=== PATIENT | female | born 1995 | race American Indian/Alaskan Native ===

== ENCOUNTER 2019-05-24 21:44 | Emergency (ER) | payer SELFPAY ==
[2019-05-24 22:47] VITALS: BP 110/71
--- NOTE | 2019-05-25 00:54 | Emergency Department Report ---
Burn HPI - History Stated Complaint: LT MIDDLE FINGER PAIN Chief Complaint: Burn/Smoke Inhalation Time Seen by Provider: 05/25/19 00:02 Duration of Burn: Today Burn Location: Other (right ring finger) Burn Etiology: Accidental Pain: Mild Symptoms:: Yes Able to Tolerate Fluids, No Blistering, No Malaise, No Myalgias, No Fever, No Vomiting Other History: This is a 24-year-old female nontoxic, well nourished in appearance, no acute signs of distress presents to the ED with c/o of right ring finger superficial burn. Patient stated that today she was cooking and excellently touched the hot aluminum foil. Patient denies any blisters. Patient denies any fever, chills, nausea, vomiting, headache, stiff neck, numbness or tingling. Patient is able to keep fluids. Patient denies any drug allergies significant past medical history. - Home Meds and Allergies Home Medications: Previous Rx's Medication Instructions Recorded Last Taken Type Acetaminophen/Codeine [Tylenol 1 tab PO Q6H PRN #12 tab 05/25/19 Unknown Rx /Codeine # 3 tab] Silver Sulfadiazine [Silvadene] 20 gm TP DAILY #1 cream..g. 05/25/19 Unknown Rx Allergies/Adverse Reactions: Allergies Allergy/AdvReac Type Severity Reaction Status Date / Time tomato Allergy Anaphylaxis Verified 05/24/19 22:55 ED Review of Systems ROS: Stated complaint: LT MIDDLE FINGER PAIN Other details as noted in HPI Constitutional: denies: chills, fever Eyes: denies: eye pain, eye discharge, vision change ENT: denies: ear pain, throat pain Respiratory: denies: cough, shortness of breath, wheezing Cardiovascular: denies: chest pain, palpitations Endocrine: no symptoms reported Gastrointestinal: denies: abdominal pain, nausea, diarrhea Genitourinary: denies: urgency, dysuria, discharge Musculoskeletal: denies: back pain, joint swelling, arthralgia Skin: denies: rash, lesions Neurological: denies: headache, weakness, paresthesias Psychiatric: denies: anxiety, depression Hematological/Lymphatic: denies: easy bleeding, easy bruising ED Past Medical Hx - Past Medical History Previous Medical History?: No - Surgical History Past Surgical History?: No - Social History Smoking Status: Never Smoker Substance Use Type: None - Medications Home Medications: Home Medications Medication Instructions Recorded Confirmed Last Taken Type Acetaminophen/Codeine [Tylenol 1 tab PO Q6H PRN #12 tab 05/25/19 Unknown Rx /Codeine # 3 tab] Silver Sulfadiazine [Silvadene] 20 gm TP DAILY #1 cream..g. 05/25/19 Unknown Rx Exam - Exam General: Vital signs noted. No distress. Alert and acting appropriately. HEENT: Yes Moist Mucous Membranes, No Conjuctival Injection, No Corneal Edema Exam: Yes Normal Heart Sounds, No Respiratory Distress, No Sensory Deficits, No Musculoskeletal Pain Exam: right distal ring finger erythema with no blistering, swelling or drainage. ED Course Vital Signs 05/24/19 22:32 Temperature 98.9 F Pulse Rate 72 Respiratory 18 Rate Blood Pressure 110/71 O2 Sat by Pulse 100 Oximetry - Reevaluation(s) Reevaluation #1: 05/25/19 00:54 Patient is speaking in full sentences with no signs of distress noted. ED Medical Decision Making - Medical Decision Making 24-year-old female that presents with superficial burn. Patient is stable and was examined by me. There is no open wound, blistering, swelling. Patient received Silvadene and a sterile dressing applied. Patient is also discharged with Tylenol with codeine and was instructed not to operate any machinery due to possible drowsiness. Patient was instructed to Follow-up with a primary care doctor in 3-5 days or if symptoms worsen and continue return to emergency room as soon as possible. At time of discharge, the patient does not seem toxic or ill in appearance. No acute signs of distress noted. Patient agrees to discharge treatment plan of care. No further questions noted by the patient. Critical care attestation.: If time is entered above; I have spent that time in minutes in the direct care of this critically ill patient, excluding procedure time. ED Disposition Clinical Impression: Superficial burn Disposition: DC-01 TO HOME OR SELFCARE Is pt being admited?: No Does the pt Need Aspirin: No Condition: Stable Instructions: Acetaminophen/Codeine (By mouth) Additional Instructions: Follow-up with a primary care doctor in 3-5 days or if symptoms worsen and continue return to emergency room as soon as possible. Do not operate any machinery while taking Tylenol with codeine as this may cause drowsiness. Prescriptions: Silver Sulfadiazine [Silvadene] 20 gm TP DAILY #1 cream..g. Acetaminophen/Codeine [Tylenol /Codeine # 3 tab] 1 tab PO Q6H PRN #12 tab PRN Reason: Pain , Severe (7-10) Referrals: PRIMARY CAREMD [Primary Care Provider] - 3-5 Days NICCI BRANHAM MD [Staff Physician] - 3-5 Days [facility] [Outside] - 3-5 Days Forms: Work/School Release Form(ED)
== END 2019-05-25 01:14 | disposition home or self-care (01) ==
LOC: ED 21:44
DX: T23.021A Burn of unspecified degree of single right finger (nail) except thumb, initial encounter (principal); Z91.018 Allergy to other foods; X98.8XXA Assault by other hot objects, initial encounter; Y93.G3 Activity, cooking and baking; Y92.89 Other specified places as the place of occurrence of the external cause; Y99.8 Other external cause status

== ENCOUNTER 2019-08-16 22:00 | Emergency (ER) | payer SELFPAY ==
[2019-08-16] MEDS ORDERED: ONDANSETRON 4 MG ODT TAB PO ONE (23:02)
[2019-08-16] MEDS ORDERED: ACETAMINOPHEN 325 MG TAB PO ONE (23:02)
--- NOTE | 2019-08-16 23:03 | Emergency Department Report ---
ED General Adult HPI - General Chief complaint: Abdominal Pain Stated complaint: PREG ABDOMINAL PAIN 15 WEEKS Time Seen by Provider: 08/16/19 22:43 Source: patient, RN notes reviewed Mode of arrival: Ambulatory Limitations: No Limitations - History of Present Illness Initial comments: During the history and physical examination, I am sports apparel internship and escorted by nurse Judi Avalos The patient is a 24-year-old female. She reports that she is 5, para 2. Reports last menstrual period is April 23, 2020. Reports previous surgical history includes . The patient does not have an HARDWARE DEVELOPER doctor. She presents to the ER with a complaint of nontraumatic supraumbilical pain. It started today. She took Excedrin with no relief. There is no headache, neck pain, chest pain, shortness of breath, irritative or obstructive urinary sympto ms. There is no vaginal bleeding. She does some heavy lifting, but not strenuous heavy lifting. She is currently resting comfortably, sitting on a retail manager's lap, reading a text book. -: Gradual Location: abdomen Radiation: non-radiation Quality: aching Consistency: intermittent Improves with: none Worsens with: none Associated Symptoms: denies other symptoms - Related Data Previous Rx's Medication Instructions Recorded Last Taken Type Acetaminophen [Non-Aspirin Extra 500 mg PO Q6HR PRN #30 tablet 08/17/19 Unknown Rx Strength] Doxylamine Succinate/Vit B6 1 each PO QHS PRN #30 tablet. 08/17/19 Unknown Rx [Adeline Cole 10-10 mg Tablet] Mine Root [Mine] 250 mg PO QID PRN #30 capsule 08/17/19 Unknown Rx Nitrofurantoin Windsor/M-Cryst 100 mg PO Q12HR #14 capsule 08/17/19 Unknown Rx [Macrobid CAP] Vit-Fe Fumar-FA [ 1 tab PO QDAY #30 tablet 08/17/19 Unknown Rx Vitamin] Allergies Allergy/AdvReac Type Severity Reaction Status Date / Time Sulfa (Sulfonamide Allergy Unknown Verified 08/16/19 22:13 Antibiotics) tomato Allergy Anaphylaxis Verified 05/24/19 22:55 ED Review of Systems ROS: Stated complaint: PREG ABDOMINAL PAIN 15 WEEKS Other details as noted in HPI Constitutional: fever Eyes: denies: eye discharge ENT: denies: congestion Respiratory: denies: wheezing Cardiovascular: denies: syncope Gastrointestinal: abdominal pain Genitourinary: denies: dysuria Musculoskeletal: denies: back pain Skin: as per HPI Neurological: as per HPI Psychiatric: as per HPI Hematological/Lymphatic: denies: easy bleeding ED Past Medical Hx - Past Medical History Previous Medical History?: Yes Hx Asthma: Yes Additional medical history: ecemia. Preeclampsia with 1st preg. - Surgical History Past Surgical History?: Yes Additional Surgical History: - Social History Smoking Status: Never Smoker Substance Use Type: None - Medications Home Medications: Home Medications Medication Instructions Recorded Confirmed Last Taken Type Acetaminophen [Non-Aspirin Extra 500 mg PO Q6HR PRN #30 tablet 08/17/19 Unknown Rx Strength] Doxylamine Succinate/Vit B6 1 each PO QHS PRN #30 tablet. 08/17/19 Unknown Rx [Diclegis Dr 10-10 mg Tablet] Mine Root [Mine] 250 mg PO QID PRN #30 capsule 08/17/19 Unknown Rx Nitrofurantoin Windsor/M-Cryst 100 mg PO Q12HR #14 capsule 08/17/19 Unknown Rx [Macrobid CAP] Vit-Fe Fumar-FA [ 1 tab PO QDAY #30 tablet 08/17/19 Unknown Rx Vitamin] ED Physical Exam - General Limitations: No Limitations General appearance: alert, in no apparent distress - Head Head exam: Present: atraumatic, normocephalic - Eye Eye exam: Present: normal appearance, EOMI. Absent: nystagmus - ENT ENT exam: Present: normal exam, normal orophraynx, mucous membranes moist, normal external ear exam - Neck Neck exam: Present: normal inspection, full ROM. Absent: tenderness, meningismus - Respiratory Respiratory exam: Present: normal lung sounds bilaterally. Absent: respiratory distress - Cardiovascular Cardiovascular Exam: Present: regular rate, normal rhythm, normal heart sounds. Absent: bradycardia, tachycardia, irregular rhythm, systolic murmur, diastolic murmur, rubs, gallop - GI/Abdominal GI/Abdominal exam: Present: soft. Absent: distended, tenderness, guarding, rebound, rigid, pulsatile mass - Extremities Exam Extremities exam: Present: normal inspection, full ROM, other (2+ pulses noted in the bilateral upper and lower extremities. There is no palpable cord. negative Homans sign. Muscular compartments are soft. The pelvis is stable.). Absent: pedal edema, calf tenderness - Back Exam Back exam: Present: normal inspection, full ROM. Absent: tenderness, CVA tenderness (R), CVA tenderness (L), paraspinal tenderness, vertebral tenderness - Neurological Exam Neurological exam: Present: alert, normal gait, other (There is no facial droop. The tongue is midline. Extraocular movements are intact bilaterally. There is 5 out of 5 strength in bilateral upper and lower extremities. Sensation is intact to light touch bilateral upper and lower extremities. There is a normal gait.). Absent: motor sensory deficit - Psychiatric Psychiatric exam: Present: normal affect, normal mood - Skin Skin exam: Present: warm, dry, intact, normal color. Absent: rash ED Course Vital Signs 08/16/19 22:11 Temperature 98.5 F Pulse Rate 73 Respiratory 18 Rate Blood Pressure 122/72 O2 Sat by Pulse 97 Oximetry - Reevaluation(s) Reevaluation #1: 08/17/19 00:08 Differential diagnosis, including but not limited to: , encounter for evaluation/test, urinary tract infection, placenta previa, placental abruption, constipation, round ligament pain, ovarian cyst Assessment and plan: 24-year-old female with complaint of and periumbilical abdominal pain. She is afebrile with reassuring vital signs. There is no right lower quadrant tenderness, there is no right upper quadrant tenderness, there is a negative Galvan sign, there is negative Rovsing sign. Patient resting comfortably at this time, sitting on a retail manager's lap, and reading a text book. She is also quite engaged with her cellular phone. Her abdominal examination is not consistent with an acute surgical process at this time. We will treat her pain with acetaminophen, obtain screening laboratory studies, obstetrics ultrasound, and reassess. Reevaluation #2: 08/17/19 02:05 Patient resting comfortably, and in no acute distress. Ultrasound unremarkable. Repeat abdominal exam unremarkable. Patient in no distress. Urinalysis reviewed and appreciated. Patient will be started empirically on Macrobid, vitamins, as needed nausea medications, as needed Tylenol, she can follow-up with an outpatient u.s. senator to initiate outpatient care. Return precautions are reviewed. ED Medical Decision Making - Lab Data Result diagrams: 08/17/19 00:02 08/17/19 00:02 Vital Signs 08/16/19 22:11 Temperature 98.5 F Pulse Rate 73 Respiratory 18 Rate Blood Pressure 122/72 O2 Sat by Pulse 97 Oximetry Lab Results 08/16/19 08/16/19 Range/Units 23:02 23:30 Urine Bilirubin Neg (Negative) Urine RBC (Auto) 6.0 (0.0-6.0) /HPF U Epithel Cells (Auto) 4.0 (0-13.0) /HPF Urine Opiates Screen Presumptive negative Urine Methadone Screen Presumptive negative Ur Barbiturates Screen Presumptive negative Ur Phencyclidine Scrn Presumptive negative Ur Amphetamines Screen Presumptive negative U Benzodiazepines Scrn Presumptive negative Urine Cocaine Screen Presumptive negative Vital Signs 08/16/19 22:11 Temperature 98.5 F Pulse Rate 73 Respiratory 18 Rate Blood Pressure 122/72 O2 Sat by Pulse 97 Oximetry Labs 08/16/19 08/16/19 08/16/19 23:02 23:30 23:40 WBC RBC Hgb Hct MCV MCH MCHC RDW Plt Count Sodium Potassium Chloride Carbon Dioxide Anion Gap BUN Creatinine Estimated GFR BUN/Creatinine Ratio Glucose Calcium Magnesium Total Bilirubin AST ALT Alkaline Phosphatase Total Creatine Kinase Total Protein Albumin Albumin/Globulin Ratio Lipase HCG, Quant Urine Color Priti Urine Turbidity Cloudy Urine pH 7.0 Ur Specific Uneeda 1.026 Urine Protein 30 mg/dl Urine Glucose (UA) Neg Urine Ketones Neg Urine Blood Neg Urine Nitrite Pos Urine Bilirubin Neg Urine Urobilinogen < 2.0 Ur Leukocyte Esterase Tr Urine WBC (Auto) 7.0 H Urine RBC (Auto) 6.0 U Epithel Cells (Auto) 4.0 Urine Mucus 3+ Urine Opiates Screen Presumptive negative Urine Methadone Screen Presumptive negative Ur Barbiturates Screen Presumptive negative Ur Phencyclidine Scrn Presumptive negative Ur Amphetamines Screen Presumptive negative U Benzodiazepines Scrn Presumptive negative Urine Cocaine Screen Presumptive negative U Marijuana (THC) Screen Presumptive positive Drugs of Abuse Note Disclamer Blood Type O POSITIVE 08/17/19 08/17/19 08/17/19 00:02 00:02 00:02 WBC 9.1 RBC 3.85 Hgb 11.9 Hct 35.8 MCV 93 MCH 31 MCHC 33 RDW 14.0 Plt Count 223 Sodium 137 Potassium 3.8 Chloride 102.0 Carbon Dioxide 23 Anion Gap 16 BUN 6 L Creatinine 0.5 L Estimated GFR > 60 BUN/Creatinine Ratio 12 Glucose 84 Calcium 8.8 Magnesium 1.90 Total Bilirubin < 0.20 AST 19 ALT 11 Alkaline Phosphatase 53 Total Creatine Kinase 177 H Total Protein 6.8 Albumin 4.0 Albumin/Globulin Ratio 1.4 Lipase HCG, Quant 47461 H Urine Color Urine Turbidity Urine pH Ur Specific Uneeda Urine Protein Urine Glucose (UA) Urine Ketones Urine Blood Urine Nitrite Urine Bilirubin Urine Urobilinogen Ur Leukocyte Esterase Urine WBC (Auto) Urine RBC (Auto) U Epithel Cells (Auto) Urine Mucus Urine Opiates Screen Urine Methadone Screen Ur Barbiturates Screen Ur Phencyclidine Scrn Ur Amphetamines Screen U Benzodiazepines Scrn Urine Cocaine Screen U Marijuana (THC) Screen Drugs of Abuse Note Blood Type 08/17/19 00:02 WBC RBC Hgb Hct MCV MCH MCHC RDW Plt Count Sodium Potassium Chloride Carbon Dioxide Anion Gap BUN Creatinine Estimated GFR BUN/Creatinine Ratio Glucose Calcium Magnesium Total Bilirubin AST ALT Alkaline Phosphatase Total Creatine Kinase Total Protein Albumin Albumin/Globulin Ratio Lipase 13 HCG, Quant Urine Color Urine Turbidity Urine pH Ur Specific Uneeda Urine Protein Urine Glucose (UA) Urine Ketones Urine Blood Urine Nitrite Urine Bilirubin Urine Urobilinogen Ur Leukocyte Esterase Urine WBC (Auto) Urine RBC (Auto) U Epithel Cells (Auto) Urine Mucus Urine Opiates Screen Urine Methadone Screen Ur Barbiturates Screen Ur Phencyclidine Scrn Ur Amphetamines Screen U Benzodiazepines Scrn Urine Cocaine Screen U Marijuana (THC) Screen Drugs of Abuse Note Blood Type - Radiology Data Radiology results: report reviewed, image reviewed Print Report Referring Physician: JEFFREY ALANIZ Patient Name: JULIA WOLFF Date of : 1995 Sex: Female Report Date: 2019-08-17 Report Status: Finalized Findings [address] [address] Ultrasound Report Signed Patient: JULIA WOLFF MR#: [id number] : 1995 Acct:[id number] Age/Sex: 24 / F ADM Date: 08/16/19 Loc: ED Attending Dr: Ordering Physician: JEFFREY ALANIZ MD Date of Service: 08/16/19 Procedure(s): US OB >= 14 weeks Fetus Accession Number(s): [id number] cc: JEFFREY ALANIZ MD ULTRASOUND OBSTETRIC INDICATION: 16 weeks with abdominal pain. TECHNIQUE: Transabdominal. COMPARISON: None available. FINDINGS: There is a single intrauterine . Biparietal Diameter = 3.36 cm = 16 weeks, 3 day(s). Head Circumference = 12.86 cm = 16 weeks, 4 day(s). Abdominal Circumference = 11.13 cm = 17 weeks, 0 day(s). Femur Length = 1.97 cm = 15 weeks, 6 day(s). Average Ultrasound Age (AUA) = 16 weeks, 3 day(s). Heart Rate: 142 beats per minute. Position: cephalic. Cervix: closed. Length in cm (if measured): 4.3 Placenta: anterior and free of the os. Amniotic Fluid Volume: normal Amniotic Fluid Index (JOSE CARLOS) in cm (if calculated): 5.4. Maternal Adnexa: No significant abnormality. IMPRESSION: 1. Single, living intrauterine with estimated sonographic age of 16 weeks, 3 day(s). 2. No significant sonographic abnormality. Signer Name: Iban Boo MD Signed: 08/17/2019 1:20 AM Workstation Name: [id number] Transcribed By: MN Dictated By: Iban Boo MD Electronically Authenticated By: Iban Boo MD Signed Date/Time: 08/17/19119 DD/ 0114 Critical care attestation.: If time is entered above; I have spent that time in minutes in the direct care of this critically ill patient, excluding procedure time. ED Disposition Clinical Impression: Abdominal pain in Qualifiers: Trimester: second trimester Qualified Code(s): O26.892 - Other specified related conditions, second trimester; R10.9 - Unspecified abdominal pain Disposition: DC-01 TO HOME OR SELFCARE Is pt being admited?: No Does the pt Need Aspirin: No Condition: Stable Additional Instructions: Follow-up as soon as possible with an outpatient u.s. senator to initiate care. Patient was found to be 16 weeks and 3 days . Rest, avoid heavy lifting and strenuous physical activities, participate in physical activities as tolerated. Urine toxicology screen demonstrated the presence of marijuana. Recommend that patient avoid consumption and secondhand exposure to marijuana, as it may be detrimental in , and may be responsible for defects, decreased quality of life, and other complications. Take the pain medications as needed, antibiotics as directed, and vitamins/nausea medications as needed and directed. Cultures were sent today, results will be available in the next 3 to 5 days. Please have a primary care doctor or u.s. senator contact medical records department to obtain culture results. While , do not consume alcohol, tobacco, recreational drugs, and avoid consumption of Motrin, ibuprofen, Naprosyn, Aleve. Please return to the emergency room right away with new, worsened or different symptoms, or symptoms not present on the initial emergency room evaluation. Referrals: PRIMARY CAREMD [Primary Care Provider] - 3-5 Days [facility] [Provider Group] - 3-5 Days [facility] [Provider Group] - 3-5 Days [facility] [Provider Group] - 3-5 Days [facility] [Provider Group] - 3-5 Days
[2019-08-16 23:50] LABS: Bilirubin,Urine NEG (Negative); Blood,Urine NEG (Negative); Color,Urine Amber (Yellow); Mucus,Urine 3+ /HPF; Urobilinogen,Urine < 2.0 mg/dL (<2.0)
[2019-08-16 23:54] LABS: Amphetamine Screen,Urine PRESUMPTIVE NEGATIVE; Benzodiazepines Screen,Urine PRESUMPTIVE NEGATIVE; Cocaine Screen,Urine PRESUMPTIVE NEGATIVE; Methadone Screen,Urine PRESUMPTIVE NEGATIVE; Opiate Screen,Urine PRESUMPTIVE NEGATIVE
[2019-08-17 00:41] LABS: Cannabinoid Screen,Urine PRESUMPTIVE POSITIVE
[2019-08-17 00:45] LABS: Alanine Aminotransferase 11 units/L (7-56); BUN/Creatinine Ratio 12; Blood Urea Nitrogen 6 mg/dL (7-17); Calcium 8.8 mg/dL (8.4-10.2); Hemolysis Index 0
[2019-08-17 00:57] LABS: Hematocrit 35.8 % (30.3-42.9); Hemoglobin 11.9 gm/dl (10.1-14.3); Mean Corpuscular HGB Conc 33 % (30-34); Mean Corpuscular Volume 93 fl (79-97); Platelet Count 223 K/mm3 (140-440); Red Blood Count 3.85 M/mm3 (3.65-5.03)
--- NOTE | 2019-08-17 01:25 | Ultrasound Report ---
ULTRASOUND OBSTETRIC INDICATION: 16 weeks with abdominal pain. TECHNIQUE: Transabdominal. COMPARISON: None available. FINDINGS: There is a single intrauterine . Biparietal Diameter = 3.36 cm = 16 weeks, 3 day(s). Head Circumference = 12.86 cm = 16 weeks, 4 day(s). Abdominal Circumference = 11.13 cm = 17 weeks, 0 day(s). Femur Length = 1.97 cm = 15 weeks, 6 day(s). Average Ultrasound Age (AUA) = 16 weeks, 3 day(s). Heart Rate: 142 beats per minute. Position: cephalic. Cervix: closed. Length in cm (if measured): 4.3 Placenta: anterior and free of the os. Amniotic Fluid Volume: normal Amniotic Fluid Index (JOSE CARLOS) in cm (if calculated): 5.4. Maternal Adnexa: No significant abnormality. IMPRESSION: 1. Single, living intrauterine with estimated sonographic age of 16 weeks, 3 day(s). 2. No significant sonographic abnormality. Signer Name: Iban Boo MD Signed: 08/17/2019 1:20 AM Workstation Name: [id number]
[2019-08-17 02:27] VITALS: BP 107/67
== END 2019-08-17 02:25 | disposition home or self-care (01) ==
LOC: ED 22:00
DX: O26.892 Other specified pregnancy related conditions, second trimester (principal); R10.33 Periumbilical pain; Z79.899 Other long term (current) drug therapy; Z88.2 Allergy status to sulfonamides; Z91.018 Allergy to other foods; Z3A.16 16 weeks gestation of pregnancy
CPT/HCPCS: 36415; 76805; 80053; 80307; 81001; 82550; 83690; 83735; 84702; 85027; 86850; 86900; 86901; 87076; 87086; 87186; Q0162

== ENCOUNTER 2019-09-21 08:47 | Outpatient (CLI) | payer MEDICAID ==
[2019-09-21 11:08] VITALS: BP 112/69
--- NOTE | 2019-09-21 11:15 | Ultrasound Report ---
LIMITED OBSTETRIC ULTRASOUND HISTORY: Vaginal bleeding. Check cervical length. COMPARISON: None. TECHNIQUE: Limited OB ultrasound performed. FINDINGS: Cervix: 3.1 cm in length and closed. Ovaries And Uterus: No significant abnormality. Gestation: Ramirez Monochorionic monoamniotic intrauterine fetus. Placenta: anterior location and free of the internal cervical os. Presentation: Breech Amniotic fluid: Within normal limits. ANATOMY: Detailed anatomic survey was not requested. Somatic activity is subjectively within normal limits. C ardiac activity is regular rate at152 beats per minute. BIOMETRY: Not performed. IMPRESSION: Single living intrauterine at approximately 21 weeks 4 days based on clinical dating with n o significant abnormality. Signer Name: Valdez Preciado MD Signed: 09/21/2019 11:11 AM Workstation Name: [id number]
== END 2019-09-21 11:27 | disposition home or self-care (01) ==
LOC: TRG 08:47
PROVIDERS: ATTEND Obstetrics & Gynecology
DX: O46.8X2 Other antepartum hemorrhage, second trimester (principal); Z3A.21 21 weeks gestation of pregnancy
CPT/HCPCS: 76815

== ENCOUNTER 2019-11-14 19:31 | Outpatient (CLI) | payer MEDICAID ==
[2019-11-14 22:17] LABS: Hematocrit 35.7 % (30.3-42.9); Hemoglobin 12.2 gm/dl (10.1-14.3); Mean Corpuscular HGB Conc 34 % (30-34); Mean Corpuscular Volume 95 fl (79-97); Platelet Count 171 K/mm3 (140-440); Red Blood Count 3.75 M/mm3 (3.65-5.03); Red Cell Distribution Width 13.8 % (13.2-15.2)
[2019-11-14 22:21] LABS: Bilirubin,Urine NEG (Negative); Blood,Urine NEG (Negative); Color,Urine Yellow (Yellow); Mucus,Urine FEW /HPF; Protein,Urine <15 mg/dL mg/dL (Negative); Urobilinogen,Urine < 2.0 mg/dL (<2.0)
[2019-11-14 22:33] LABS: Alanine Aminotransferase 8 units/L (7-56); Uric Acid 3.2 mg/dL (3.5-7.6)
[2019-11-15 13:37] VITALS: BP 113/86
== END 2019-11-14 22:45 | disposition home or self-care (01) ==
LOC: TRG 19:31 → ED 19:31 → EDSTATUS 21:20 → APU 21:22 → TRG 22:45
PROVIDERS: ATTEND Obstetrics & Gynecology
DX: O26.893 Other specified pregnancy related conditions, third trimester (principal); Z3A.29 29 weeks gestation of pregnancy
CPT/HCPCS: 36415; 59025; 81001; 82565; 83615; 84450; 84460; 84550; 85027

== ENCOUNTER 2019-11-25 11:43 | Outpatient (CLI) | payer MEDICAID ==
[2019-11-25 12:18] VITALS: BP 113/78
[2019-11-25] MEDS ORDERED: ACETAMINOPHEN 500 MG TAB PO ONE (12:52)
[2019-11-25] MEDS ORDERED: ONDANSETRON 4 MG/2 ML INJ IV PRN (12:55)
[2019-11-25] MEDS ORDERED: ONDANSETRON 8 MG ODT TAB PO PRN (13:51)
[2019-11-25 14:05] LABS: Hemoglobin 11.9 gm/dl (10.1-14.3); Mean Corpuscular HGB Conc 34 % (30-34); Mean Corpuscular Volume 96 fl (79-97); Platelet Count 135 K/mm3 (140-440); Red Blood Count 3.64 M/mm3 (3.65-5.03); Red Cell Distribution Width 13.2 % (13.2-15.2)
[2019-11-25 14:15] LABS: Bilirubin,Urine NEG (Negative); Blood,Urine SM (Negative); Color,Urine Yellow (Yellow); Mucus,Urine FEW /HPF; Protein,Urine <15 mg/dL mg/dL (Negative); Urobilinogen,Urine < 2.0 mg/dL (<2.0)
[2019-11-25 14:27] LABS: Alanine Aminotransferase 9 units/L (7-56)
== END 2019-11-25 15:35 | disposition home or self-care (01) ==
LOC: TRG 11:43
PROVIDERS: ATTEND Obstetrics & Gynecology
DX: O26.893 Other specified pregnancy related conditions, third trimester (principal); R51 Headache; O47.03 False labor before 37 completed weeks of gestation, third trimester; O13.3 Gestational [pregnancy-induced] hypertension without significant proteinuria, third trimester; O99.513 Diseases of the respiratory system complicating pregnancy, third trimester; J45.909 Unspecified asthma, uncomplicated; O99.323 Drug use complicating pregnancy, third trimester; F12.90 Cannabis use, unspecified, uncomplicated; Z3A.30 30 weeks gestation of pregnancy
CPT/HCPCS: 36415; 59025; 81001; 82565; 83615; 84450; 84460; 84550; 85027; Q0162; J2405

== ENCOUNTER 2019-12-27 11:58 | Outpatient (CLI) | payer MEDICAID ==
[2019-12-27] MEDS ORDERED: LACTATED RINGERS 500 ML IV ONE (13:24)
[2019-12-27 14:32] LABS: Bilirubin,Urine NEG (Negative); Blood,Urine NEG (Negative); Color,Urine Yellow (Yellow); Mucus,Urine FEW /HPF; Protein,Urine <15 mg/dL mg/dL (Negative); Urobilinogen,Urine < 2.0 mg/dL (<2.0); WBC,Urine < 1.0 /HPF (0.0-6.0)
[2019-12-27 15:26] LABS: Basophils # (Auto) 0.1 K/mm3 (0.0-0.1); Basophils % (Auto) 0.8 % (0.0-1.8); Eosinophils % (Auto) 0.5 % (0.0-4.3); Hematocrit 35.7 % (30.3-42.9); Hemoglobin 12.4 gm/dl (10.1-14.3); Lymphocytes # (Auto) 2.2 K/mm3 (1.2-5.4); Lymphocytes % (Auto) 21.9 % (13.4-35.0); Mean Corpuscular HGB Conc 35 % (30-34); Mean Corpuscular Volume 97 fl (79-97); Monocytes # (Auto) 0.9 K/mm3 (0.0-0.8); Monocytes % (Auto) 8.9 % (0.0-7.3); Platelet Count 133 K/mm3 (140-440); Red Blood Count 3.68 M/mm3 (3.65-5.03); Red Cell Distribution Width 13.5 % (13.2-15.2)
[2019-12-27 16:04] LABS: Alanine Aminotransferase 9 units/L (7-56); Albumin 3.2 g/dL (3.9-5); BUN/Creatinine Ratio 20; Blood Urea Nitrogen 8 mg/dL (7-17); Calcium 8.6 mg/dL (8.4-10.2); Hemolysis Index 6
--- NOTE | 2019-12-27 17:01 | Ultrasound Report ---
ULTRASOUND ABDOMEN, COMPLETE INDICATION: IUP at 35 wks, severe epigastric pain. COMPARISON: No relevant prior imaging study available. FINDINGS: Pancreas: Not well seen due to overlying bowel gas. The imaged portions are unremarkable. Abdominal Aorta: No significant abnormality. IVC: No significant abnormality. Liver: No significant abnormality. Gallbladder: No significant abnormality. Bile ducts: No significant abnormality. Common bile duct measures 2 mm. Kidneys: Right: No significant abnormality. Left : No significant abnormality. Spleen: No significant abnormality. Free fluid: None. Additional Findings: None. IMPRESSION: 1. No sonographic abnormality of the abdomen. Signer Name: Akira Lopez MD Signed: 12/27/2019 4:57 PM Workstation Name: [id number]
--- NOTE | 2019-12-27 17:12 | Ultrasound Report ---
Limited OB ultrasound INDICATION: well-being, concern for premature rupture of membranes FINDINGS: There is a single intrauterine . Fetus is in a cephalic presentation. The amniotic fluid index is 7.5 cm which is within the normal range. heart rate is 146 bpm. IMPRESSION: Amniotic fluid index is within the normal range. heart rate is 146 bpm. BIOPHYSICAL PROFILE FINDINGS: breathing movement: 2/2 movement: 2/2 posture and tone: 2/2 Qualitative amniotic fluid volume: 2/2 IMPRESSION: Total score for biophysical profile is 8/8 heart rate is 146 bpm Signer Name: Akira Lopez MD Signed: 12/27/2019 5:08 PM Workstation Name: [id number]
[2019-12-27] MEDS ORDERED: LACTATED RINGERS 1,000 ML ONE (17:32)
[2019-12-27] MEDS ORDERED: ONDANSETRON 8 MG ODT TAB PO ONE (18:07)
[2019-12-27] MEDS ORDERED: TERBUTALINE 1 MG/1 ML INJ SUB-Q ONE (18:07)
[2019-12-27 18:17] VITALS: BP 127/79
== END 2019-12-27 20:00 | disposition home or self-care (01) ==
LOC: APU 11:58 → TRG 11:58
PROVIDERS: ATTEND Obstetrics & Gynecology
DX: O26.893 Other specified pregnancy related conditions, third trimester (principal); R10.13 Epigastric pain; O13.3 Gestational [pregnancy-induced] hypertension without significant proteinuria, third trimester; O99.513 Diseases of the respiratory system complicating pregnancy, third trimester; J45.909 Unspecified asthma, uncomplicated; Z3A.35 35 weeks gestation of pregnancy
CPT/HCPCS: 36415; 59025; 76700; 76815; 76819; 80053; 81001; 82150; 83690; 85025; 96372; J3105; J7120; Q0162; 96360

== ENCOUNTER 2019-12-30 21:05 | Outpatient (CLI) | payer MEDICAID ==
[2019-12-30] MEDS ORDERED: ONDANSETRON 4 MG/2 ML INJ IV ONE (22:00)
[2019-12-30] MEDS ORDERED: D5W/LACTATED RINGERS 1,000 ML IV SCH (22:00)
== END 2019-12-30 22:28 | disposition home or self-care (01) ==
LOC: TRG 21:05 → APU 21:06 → TRG 22:28
PROVIDERS: ATTEND Obstetrics & Gynecology
DX: O21.2 Late vomiting of pregnancy (principal); O99.283 Endocrine, nutritional and metabolic diseases complicating pregnancy, third trimester; E86.0 Dehydration; O47.03 False labor before 37 completed weeks of gestation, third trimester; Z3A.35 35 weeks gestation of pregnancy
CPT/HCPCS: 59025; 96361; 96365; J2405; J7121; 96360; 96374

== ENCOUNTER 2021-11-27 17:32 | Outpatient (CLI) | payer MEDICAID ==
[2021-11-27 17:59] VITALS: BP 106/68
[2021-11-27] MEDS ORDERED: LACTATED RINGERS 1,000 ML IV ONE (18:08)
[2021-11-27 18:45] LABS: Bacteria,Urine 3+ /HPF (Negative); Bilirubin,Urine NEG (Negative); Blood,Urine NEG (Negative); Color,Urine Yellow (Yellow); Mucus,Urine 3+ /HPF; Protein,Urine <15 mg/dL mg/dL (Negative); RBC,Urine < 1.0 /HPF (0.0-6.0)
[2021-11-27] MEDS ORDERED: cefTRIAXone/NS 1 GM/50 ML 1 GM/50 ML BAG IV ONE (19:06)
== END 2021-11-27 20:25 | disposition home or self-care (01) ==
LOC: TRG 17:32 → APU 17:33 → TRG 20:25
PROVIDERS: ATTEND Obstetrics & Gynecology
DX: O21.2 Late vomiting of pregnancy (principal); O62.9 Abnormality of forces of labor, unspecified; Z3A.31 31 weeks gestation of pregnancy
CPT/HCPCS: 59025; 81001; 96360; 96366

== ENCOUNTER 2021-12-18 12:32 | Outpatient (CLI) | payer MEDICAID ==
[2021-12-18] MEDS ORDERED: LACTATED RINGERS 500 ML IV ONE (13:15)
[2021-12-18 14:10] VITALS: BP 104/76
[2021-12-18 15:10] LABS: Bilirubin,Urine NEG (Negative); Blood,Urine NEG (Negative); Color,Urine Yellow (Yellow)
[2021-12-18 15:12] LABS: Bacteria,Urine 1+ /HPF (Negative); Mucus,Urine 3+ /HPF
[2021-12-18 15:26] LABS: Protein,Urine <15 mg/dL mg/dL (Negative)
== END 2021-12-18 16:05 | disposition home or self-care (01) ==
LOC: TRG 12:32 → APU 12:33 → TRG 16:05
PROVIDERS: ATTEND Obstetrics & Gynecology
DX: O26.893 Other specified pregnancy related conditions, third trimester (principal); R10.2 Pelvic and perineal pain; O26.853 Spotting complicating pregnancy, third trimester; Z3A.34 34 weeks gestation of pregnancy
CPT/HCPCS: 59025; 81001; J7120; 96360